=== PATIENT | female | born 1995 | race Caucasian/White ===

== ENCOUNTER 2017-10-22 16:05 | Emergency (ER) | payer OTHER ==
[2017-10-22 16:14] VITALS: BP 132/72; RESP 18; TEMP 98.3
[2017-10-22] MEDS ORDERED: IBUPROFEN 600 MG TAB PO STA (16:47)
[2017-10-22] MEDS ORDERED: DIPH,PERTUS(ACELL)TETVAC-LF 0.5 ML VIAL IM ONE (16:47)
[2017-10-22] MEDS ORDERED: LIDOCAINE 1% INJ 10MG/ML (20 ML MDV) SQ ONE (16:47)
--- NOTE | 2017-10-22 18:53 | ED ---
Animal Bite HPI - General Chief Complaint: Animal Bite Stated Complaint: dog bite Time Seen by Provider: 10/22/17 16:08 Source: patient, EMS Mode of arrival: EMS Limitations: no limitations - History of Present Illness Initial Comments: This is a 22yo female who denies PMH who presents today for CC of upper lip laceration after her dog bit her in the lip. Pt states that about 20 minutes prior to arrival in ED she was trying to leave the house, and went to push her dog out of the way when he jumped up and bit her in the face, lacerating her upper right side of lip. Pt felt faint from seeing blood, but did not actually faint or lose conciousness. Her cousin called EMS. Pt was taken to ER where she was met by her mother. Pt cant recall last tetanus. Pt states that the dog's vaccination are up to date. Pt denies any other injuries. Patient denies any recent fever, chills, shortness of breath, chest pain, back pain, abdominal pain , nausea or vomiting, numbness or tingling, dysuria or hematuria, constipation or diarrhea, headaches or visual changes, or any other complaints. - Related Data Home Medications Medication Instructions Recorded Confirmed Acetaminophen Tab [Tylenol Tab] 325 mg PO Q6H PRN 10/22/17 10/22/17 Sertraline [Zoloft] 50 mg PO HS 10/22/17 10/22/17 Previous Rx's Medication Instructions Recorded Amoxic-Pot Clav 875-125Mg 1 tab PO Q12HR 7 Days #14 tablet 10/22/17 [Augmentin 875-125] Ibuprofen [Motrin] 600 mg PO Q8HR PRN 7 Days #21 tab 10/22/17 Allergies Allergy/AdvReac Type Severity Reaction Status Date / Time NEDA ECKERT AdvReac Rash/Hives Uncoded 10/22/17 17:15 Review of Systems ROS Statement: Those systems with pertinent positive or pertinent negative responses have been documented in the HPI. ROS Other: All systems not noted in ROS Statement are negative. Constitutional: Denies: fever, chills Eyes: Denies: eye pain, vision change ENT: Denies: ear pain, hearing loss Respiratory: Denies: cough Cardiovascular: Denies: chest pain, palpitations Endocrine: Denies: fatigue Gastrointestinal: Denies: abdominal pain, nausea Genitourinary: Denies: as per HPI, urgency, dysuria Musculoskeletal: Denies: back pain Skin: Reports: as per HPI Neurological: Denies: numbness, paresthesias Past Medical History Past Medical History: No Reported History History of Any Multi-Drug Resistant Organisms: None Reported Additional Past Surgical History / Comment(s): Eye surgery x2 Past Psychological History: Anxiety, Depression Smoking Status: Light tobacco smoker Past Alcohol Use History: Occasional Past Drug Use History: Marijuana General Exam - General Exam Comments Initial Comments: General: The patient is awake and alert, in no distress, and does not appear acutely ill. Eye: Pupils are equal, round and reactive to light, extra-ocular movements are intact. No nystagmus. There is normal conjunctiva bilaterally. No signs of icterus. Ears, nose, mouth and throat: There are moist mucous membranes and no oral lesions. Neck: The neck is supple, there is no tenderness or JVD. Cardiovascular: There is a regular rate and rhythm. No murmur, rub or gallop is appreciated. Respiratory: Lungs are clear to auscultation, respirations are non-labored, breath sounds are equal. No wheezes, stridor, rales, or rhonchi. Neurological: A&O x 3. CN II-XII intact, There are no obvious motor or sensory deficits. Coordination appears grossly intact. Speech is normal. Skin: Skin is warm and dry and no rashes. 3 cm linear laceration through eris border of the right upper lip extending down toward internal lip mucosa. Laceration is single layer and not through and through. No injury to teeth, tongue or gingiva. Psychiatric: Cooperative, appropriate mood & affect, normal judgment. Limitations: no limitations Course Vital Signs 10/22/17 10/22/17 16:07 19:28 Temperature 98.3 F Pulse Rate 76 18 L Respiratory 18 Rate Blood Pressure 132/72 O2 Sat by Pulse 100 Oximetry Procedures - Laceration Laceration #1 Consent Obtained: verbal consent Time Out Performed: Yes Indication: laceration Site: face, lip Size (cm): 3 Description: linear, involves eris border Depth: simple, single layer Anesthetic Used: lidocaine 1% Anesthesia Technique: local infiltration Amount (mls): 8 Pre-repair: wound explored, irrigated extensively, deep structures intact Type of Sutures: nylon Size of Sutures: 6-0 Number of Sutures: 7 Technique: simple, interrupted Patient Tolerated Procedure: well, no complications Medical Decision Making - Medical Decision Making Pt received TDap adn 600 ibuprofen for pain. Pt was offered numerous times to transfer facilities for plastic surgery consult, they refused after asked by myself 3 times and the nurse. They stated they just wanted it closed now so they can go home. I explained that there will be scarring and that plastic surgery will perform the best wound closure for facial laceration, however they continued to deny transfer. Wound irrigate explored and approximated with 7, 6.0 sutures. Vermilllion border approximated as closely to anatomical position as possible. Pt tolerated procedure well. Pt denied any numbess, tingling or loss of sensation of the lip/face. Case discussed with Dr. Perez. Pt was discharged wtih augment for abx ppx and f/u with pcp and plastic surgeon. Pt agreed with plan and d/c in stable condition. Disposition Clinical Impression: Dog bite of vermilion of upper lip Disposition: HOME SELF-CARE Condition: Good Instructions: Animal Bite (ED) Additional Instructions: Please follow-up with plastic surgery in 1-2 days. Please return for suture removal in 5 days. Please return to the ER for any worsening or changes in symptoms. Please take medication as discussed. Prescriptions: Amoxic-Pot Clav 875-125Mg [Augmentin 875-125] 1 tab PO Q12HR 7 Days #14 tablet Ibuprofen [Motrin] 600 mg PO Q8HR PRN 7 Days #21 tab PRN Reason: Pain Is patient prescribed a controlled substance at d/c from ED?: No Referrals: José Tello MD [Primary Care Provider] - 1-2 days John Martines MD [STAFF PHYSICIAN] - 1-2 days Time of Disposition: 18:52
[2017-10-22 19:29] VITALS: PULSE 18
== END 2017-10-22 19:29 | disposition home or self-care (01) ==
LOC: EC 16:05
DX: S01.511A Laceration without foreign body of lip, initial encounter (principal); F32.9 Major depressive disorder, single episode, unspecified; F41.9 Anxiety disorder, unspecified; F17.200 Nicotine dependence, unspecified, uncomplicated; Z79.899 Other long term (current) drug therapy; Z91.018 Allergy to other foods; Z23 Encounter for immunization; W54.0XXA Bitten by dog, initial encounter; Y93.89 Activity, other specified; Y92.009 Unspecified place in unspecified non-institutional (private) residence as the place of occurrence of the external cause
CPT/HCPCS: 90715; 99283; 12013; 90471; J2001

== ENCOUNTER 2022-10-02 15:52 | Emergency (ER) | payer OTHER ==
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
[2022-10-02] MEDS ORDERED: IBUPROFEN 400 MG TAB PO STA (19:19)
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
[2022-10-02 19:49] VITALS: BP 134/80; PULSE 76; RESP 16; TEMP 97.9
== END 2022-10-02 19:50 | disposition home or self-care (01) ==
LOC: EC 15:52
DX: S16.1XXA Strain of muscle, fascia and tendon at neck level, initial encounter (principal); F32.A Depression, unspecified; F41.9 Anxiety disorder, unspecified; F17.290 Nicotine dependence, other tobacco product, uncomplicated; F12.90 Cannabis use, unspecified, uncomplicated; Z91.018 Allergy to other foods; Z79.899 Other long term (current) drug therapy; V89.2XXA Person injured in unspecified motor-vehicle accident, traffic, initial encounter; Y92.411 Interstate highway as the place of occurrence of the external cause
CPT/HCPCS: 70450; 71046; 72125; 99285

== ENCOUNTER 2023-06-23 23:59 | Emergency (ER) | payer OTHER ==
--- NOTE | 2023-06-24 00:40 | ED ---
Back Pain HPI - General Chief Complaint: Back Pain/Injury Stated Complaint: Severe lower back pain Time Seen by Provider: 06/24/23 00:10 Source: patient, family Limitations: no limitations - History of Present Illness Initial Comments: 27-year-old female presenting to the ED with a chief complaint of back pain. Patient reports a history of chronic back pain. No hx of kidney stones. Patient states yesterday while she was driving started to notice some pain in her left states it went away however today while resting started to feel this pain again in her left prompting presentation to the ED for further evaluation. Pain is worse with movement/position changes. Patient denies dysuria, hematuria, frequency, urgency. No nausea or vomiting. Denies saddle anesthesia or inc ontinence. Denies fever or chills. No chest pain or shortness of breath. Denies any recent injury. No other complaints at this time - Related Data Home Medications Medication Instructions Recorded Confirmed Acetaminophen Tab [Tylenol Tab] 325 mg PO Q6H PRN 10/22/17 10/22/17 Sertraline [Zoloft] 50 mg PO HS 10/22/17 10/22/17 Previous Rx's Medication Instructions Recorded Amoxic-Pot Clav 875-125Mg 1 tab PO Q12HR 7 Days #14 tablet 10/22/17 [Augmentin 875-125] Ibuprofen [Motrin] 600 mg PO Q8HR PRN 7 Days #21 tab 10/22/17 Cephalexin [Keflex] 500 mg PO Q6HR 7 Days #28 cap 06/24/23 Cyclobenzaprine [Flexeril] 10 mg PO TID PRN #15 tab 06/24/23 Allergies Allergy/AdvReac Type Severity Reaction Status Date / Time No Known Allergies Allergy Verified 06/24/23 00:09 Review of Systems ROS Statement: Those systems with pertinent positive or pertinent negative responses have been documented in the HPI. ROS Other: All systems not noted in ROS Statement are negative. Past Medical History Past Medical History: No Reported History History of Any Multi-Drug Resistant Organisms: None Reported Additional Past Surgical History / Comment(s): Eye surgery x2 Past Psychological History: Anxiety, Depression Smoking Status: Vaper Past Alcohol Use History: Occasional Past Drug Use History: Marijuana General Exam Limitations: no limitations General appearance: alert, in no apparent distress Eye exam: Present: normal appearance Neck exam: Present: normal inspection Respiratory exam: Present: normal lung sounds bilaterally Cardiovascular Exam: Present: regular rate, normal rhythm GI/Abdominal exam: Present: soft, normal bowel sounds. Absent: distended, tenderness, guarding, rebound, rigid Extremities exam: Present: other (Strength and sensation equal and intact in bilateral lower extremities.) Back exam: Present: normal inspection, other (No midline spinal tenderness to palpation. No CVA tenderness to percussion bilaterally. Lower left paraspinal/upper gluteal tenderness to palpation.) Neurological exam: Present: alert, oriented X3 Skin exam: Present: warm, dry Course Vital Signs 06/24/23 00:02 Temperature 97.4 F L Pulse Rate 109 H Respiratory 23 Rate Blood Pressure 131/92 O2 Sat by Pulse 100 Oximetry Medical Decision Making - Medical Decision Making Was pt. sent in by a medical professional or institution (, PA, [employer] OPERATOR, urgent care, hospital, or prison...) When possible be specific @ -No Did you speak to anyone other than the patient for history (EMS, parent, family, police, friend...)? What history was obtained from this source @ -No Did you review nursing and triage notes (agree or disagree)? Why? @ -I reviewed and agree with nursing and triage notes Were old charts reviewed (outside hosp., previous admission, EMS record, old EKG, old radiological studies, urgent care reports/EKG's, prison records)? Report findings @ -No old charts were reviewed Differential Diagnosis (chest pain, altered mental status, abdominal pain women, abdominal pain men, vaginal bleeding, weakness, fever, dyspnea, syncope, headache, dizziness, GI bleed, back pain, seizure, CVA, palpatations, mental health, musculoskeletal)? @ -Differential Musculoskeletal Muscular strain, contusion, ligament sprain, fracture, arthritis, septic arthritis, bursitis, cellulitis, muscle spasm, nerve compression, DVT, arterial occlusion, herpes zoster, electrolyte abnormality, tumor.... This is not meant to be in all inclusive list EKG interpreted by me (3pts min.). @ -As above X-rays interpreted by me (1pt min.). @ -X-ray of the lumbar spine to primary which revealed no evidence of acute finding. CT interpreted by me (1pt min.). @ -None done U/S interpreted by me (1pt. min.). @ -None done What testing was considered but not performed or refused? (CT, X-rays, U/S, labs)? Why? @ -None What meds were considered but not given or refused? Why? @ -None Did you discuss the management of the patient with other professionals (professionals i.e. , PA, [employer] OPERATOR, lab, RT, psych nurse, 7th grade social studies teacher, radial drill press set up operator, teacher, air crew officer, case management assistant)? Give summary @ -No Was smoking cessation discussed for >3mins.? @ -No Was critical care preformed (if so, how long)? @ -No Were there social determinants of health that impacted care today? How? (Homelessness, low income, unemployed, alcoholism, drug addiction, transportation, low edu. Level, literacy, decrease access to med. care, [facility] [facility], rehab)? @ -No Was there de-escalation of care discussed even if they declined (Discuss DNR or withdrawal of care, Hospice)? DNR status @ -No What co-morbidities impacted this encounter? (DM, HTN, Smoking, COPD, CAD, Cancer, CVA, ARF, Chemo, Hep., AIDS, mental health diagnosis, sleep apnea, morbid obesity)? @ -History of chronic back pain, obesity Was patient admitted / discharged? Hospital course, mention meds given and route, prescriptions, significant lab abnormalities, going to OR and other pertinent info. @ -Discharge 27-year-old female with a past medical history significant for chronic back pain presenting to the ED with a chief complaint of back pain. No recent injury or trauma. No saddle anesthesia or incontinence. On examination patient has reproducible left lower paraspinal/upper gluteal tenderness to palpation. She reports that this pain is worst with movement. Denies urinary symptoms. UA does show some evidence of infection with positive nitrites. Does have small blood and 18 RBCs however patient is on her period. Urine does have rare bacteria. Patient provided 1 g ceftriaxone here in the ED. Urine culture obtained. Back pain likely musculoskeletal in nature. Less likely pyelonephritis or kidney stone. Provided prescription for Flexeril. X-ray revealed no evidence of acute finding. Discharged home in stable condition. Discussed close return precautions with patient who verbalized agreement. Undiagnosed new problem with uncertain prognosis? @ -No Drug Therapy requiring intensive monitoring for toxicity (Heparin, Nitro, Insulin, Cardizem)? @ -No Were any procedures done? @ -No Diagnosis/symptom? @ -Urinary tract infection, back pain Acute, or Chronic, or Acute on Chronic? @ -Acute Uncomplicated (without systemic symptoms) or Complicated (systemic symptoms)? @ -Uncomplicated Side effects of treatment? @ -No Exacerbation, Progression, or Severe Exacerbation? @ -No Poses a threat to life or bodily function? How? (Chest pain, USA, MD, pneumonia, PE, COPD, DKA, ARF, appy, cholecystitis, CVA, Diverticulitis, Homicidal, Suicidal, threat to staff... and all critical care pts) @ -No - Lab Data Lab Results 06/24/23 06/24/23 Range/Units 00:44 00:44 Urine Color Light Yellow Urine Appearance Cloudy H (Clear) Urine pH 6.5 (5.0-8.0) Ur Specific [place] 1.023 (1.001-1.035) Urine Protein Negative (Negative) Urine Glucose (UA) Negative (Negative) Urine Ketones Negative (Negative) Urine Blood Small H (Negative) Urine Nitrite Positive H (Negative) Urine Bilirubin Negative (Negative) Urine Urobilinogen <2.0 (<2.0) mg/dL Ur Leukocyte Esterase Negative (Negative) Urine RBC 18 H (0-5) /hpf Urine WBC 1 (0-5) /hpf Ur Squamous Epith Cells 1 (0-4) /hpf Amorphous Sediment Occasional H (None) /hpf Urine Bacteria Rare H (None) /hpf Urine Mucus Occasional H (None) /hpf Urine HCG, Qual Not Detected (Not Detectd) Disposition Clinical Impression: UTI (urinary tract infection), Back pain Disposition: HOME SELF-CARE Condition: Good Instructions (If sedation given, give patient instructions): Acute Low Back Pain (ED), Urinary Tract Infection in Women (ED) Additional Instructions: Please return to the Emergency Department if symptoms worsen or any other concerns. Please follow-up with your primary care provider. Prescriptions: Cyclobenzaprine [Flexeril] 10 mg PO TID PRN #15 tab PRN Reason: Muscle Spasm Cephalexin [Keflex] 500 mg PO Q6HR 7 Days #28 cap Is patient prescribed a controlled substance at d/c from ED?: No Referrals: None,Stated [Primary Care Provider] - 1-2 days Time of Disposition: 02:44
[2023-06-24 00:49] VITALS: TEMP 97.4
[2023-06-24 00:57] LABS: Amorphous Sediment,Urine Occasional /hpf; Appearance,Urine Cloudy (Clear); Bacteria,Urine Rare /hpf; Bilirubin,Urine Negative (Negative); Blood,Urine Small (Negative); Color,Urine Light Yellow; Glucose,Urine (UA) Negative (Negative); Ketones,Urine Negative (Negative); Leukocyte Esterase,Urine Negative (Negative); Mucus,Urine Occasional /hpf; Nitrite,Urine Positive (Negative); PH, Urine 6.5 (5.0-8.0); Protein,Urine Negative (Negative); RBC,Urine 18 /hpf (0-5); Specific Gravity,Urine 1.023 (1.001-1.035); Squamous Epithelial Cell,Urine 1 /hpf (0-4); Urobilinogen,Urine <2.0 mg/dL (<2.0); WBC,Urine 1 /hpf (0-5)
[2023-06-24] MEDS: KETOROLAC 15 MG/ML 1 ML VIAL IM STA (01:03)
[2023-06-24] MEDS: ACETAMINOPHEN TAB 500 MG TAB PO STA (02:21)
[2023-06-24] MEDS: CEPHALEXIN 500MG STARTER PACK 4 CAP BTL PO STA (02:57)
[2023-06-24] MEDS: CYCLOBENZAPRINE 10MG STARTER 3 TAB BTL PO STA (02:57)
[2023-06-24] MEDS: cefTRIAXone 1,000 MG VIAL (IM USE) IM STA (02:57)
[2023-06-24 03:28] VITALS: BP 128/79; PULSE 71; RESP 16
--- NOTE | 2023-06-24 04:47 | XR ---
EXAM: XR Lumbosacral Spine, 2 or 3 Views CLINICAL HISTORY: ITS.REASON XR Reason: lower left back pain TECHNIQUE: Frontal and lateral views of the lumbar spine and sacrum. COMPARISON: No relevant prior studies available. FINDINGS: Vertebrae: Straightening of the lumbar lordosis. Minimal levocurvature. No acute fracture. Sacrum/coccyx: Unremarkable as visualized. No acute fracture. Disc spaces: Disc space narrowing at L5-S1. Soft tissues: Unremarkable. IMPRESSION: No acute findings in the lumbar spine.
== END 2023-06-24 03:05 | disposition home or self-care (01) ==
LOC: EC 23:59
DX: N39.0 Urinary tract infection, site not specified (principal); M54.50 Low back pain, unspecified; F17.290 Nicotine dependence, other tobacco product, uncomplicated; F12.90 Cannabis use, unspecified, uncomplicated
CPT/HCPCS: 72100; 81001; 81025; 87086; 96372; 99284

== ENCOUNTER 2024-06-21 17:42 | Outpatient (CLI) | payer OTHER ==
[2024-06-21 19:02] VITALS: BP 125/80; PULSE 110; RESP 14; TEMP 98.2
--- NOTE | 2024-07-19 11:31 | P.MSEPDOC ---
Presenting Problems - Arrival Data Date of Arrival on Unit: 06/21/24 Time of Arrival on Unit: 17:43 Mode of Transport: Ambulatory - Complaint OB-Reason for Admission/Chief Complaint: Pain Medical History - Information : 1 Para: 0 Term: 0 : 0 Abortions: Spontaneous or Elective: 0 Number of Living Children: 0 - Gestational Age Gestational Age by PAUL (wks/days): 30 Weeks and 2 Days Review of Systems - Review of Systems Constitutional: No problems Breast: No problems ENT: No problems Cardiovascular: No problems Respiratory: No problems Gastrointestinal: Constipation, Pain Genitourinary: No problems Musculoskeletal: No problems Neurological: No problems Skin: No problems Vital Signs - Temperature Temperature: 98.2 F Temperature Source: Temporal Artery Scan - Pulse Right Brachial Pulse Rate: 110 Pulse Assessment Method: Automatic Cuff - Respirations Respiratory Rate: 14 Oxygen Delivery Method: Room Air O2 Sat by Pulse Oximetry: 98 - Blood Pressure Right Arm Blood Pressure: 125/80 Blood Pressure Mean: 95 Blood Pressure Source: Automatic Cuff Medical Screen Scoring - Assessment - Baby A Baseline FHR: 135 Heart Rate - NICHD Category: Category I (Normal) NST: Reactive Physician Notification - Physician Notified Physician Notified Date: 06/21/24 Physician Notified Time: 18:27 Physician: Bill Hogan Order Received: Yes - Notification Comment Comment: d/c home Maternal Triage Index - Maternal Triage Index Presenting for scheduled procedure w/no complaint: No - Stat/Priority 1 Stat Priority 1: No - Urgent/Priority 2 Urgent Priority 2: No - Prompt/Priority 3 Prompt Priority 3: No - Non-Urgent/Priority 4 Non-Urgent Priority 4: Yes Criteria Met for Priority 4: discomforts of Disposition - Disposition OB Disposition: Discharge to home Discharge Date: 06/21/24 Discharge Time: 19:00 I agree with the RN Medical Screening Exam: Yes Physician's MSE Comment: I have neither seen nor examined the patient. Case reviewed; plan agreed upon as documented in EMR&OBIX.: Yes Diagnosis: RELATED CONDITIONS, UNSPECIFIED, THIRD TRIMESTER
== END 2024-06-21 19:03 | disposition home or self-care (01) ==
LOC: FBPOP 17:42
PROVIDERS: ATTEND Obstetrics & Gynecology
DX: O26.893 Other specified pregnancy related conditions, third trimester (principal); O99.333 Smoking (tobacco) complicating pregnancy, third trimester; F17.210 Nicotine dependence, cigarettes, uncomplicated; Z3A.30 30 weeks gestation of pregnancy
CPT/HCPCS: 59025; G0463; 99213